=== PATIENT | male | born 2000 | race Caucasian/White ===

== ENCOUNTER 2024-10-31 03:33 | Emergency (ER) | payer BC, SELFPAY ==
[2024-10-31 03:38] VITALS: BP 144/74
[2024-10-31 05:18] LABS: Urine Albumin Negative (Neg - Trace); Urine Bilirubin Negative (Negative); Urine Character Clear (Clear); Urine Color Yellow; Urine Glucose Negative (Negative); Urine Ketone Negative (Negative); Urine Leukocyte Negative (Negative); Urine Nitrite Negative (Negative); Urine Occult Blood Negative (Negative); Urine Urobilinogen Negative (Neg - 1+)
[2024-10-31 06:49] VITALS: BP 143/60
[2024-10-31] MEDS: ROXICODONE 5 MG PO (07:33)
--- NOTE | 2024-10-31 07:33 | ED.GENMED ---
History of Present Illness
General
Chief Complaint: Back Pain
Source: patient and family
Time Seen by Provider: 10/31/24 07:06
History of Present Illness
History of Present Illness:
24-year-old male with past medical history of ADHD and depression, status post lumbar discectomy and laminectomy done 2 years ago presents to the emergency department for evaluation of worsening lower back pain over the last few weeks, acutely worse
over the last 24 hours not responding to Motrin, Tylenol and the initiation of a prednisone taper. Patient states that he cannot think of anything that exacerbated the back pain over the last few weeks as he denies any heavy lifting/bending or
twisting, traumatic injuries. In addition patient is also denying any fevers, bowel changes or urinary symptoms, saddle anesthesia, history of substance abuse. Patient previously had pain management with steroid injections a few years ago and then
ultimately the surgical procedure which she does report gave him relief for an extended period of time with only intermittent flares of pain. No other concerns presently.
Past History
Past History
ED Past Medical History: Psychiatric
ED Past Surgical History: Orthopedic
Social History
Tobacco: Non-smoker
Alcohol: None
Drug: None
Personal: Single
Living: with family
Review of Systems
Review of Systems
All Other Systems: ROS reviewed and negative except as documented in HPI and ROS
Phy Exam
Physical Exam
Physical Exam:
GENERAL: Alert , appears very uncomfortable, having a hard time moving around in bed
EYE: clear conjunctiva b/l
NECK: Supple
ENT: o/p clr, mmm.
BACK: vertically oriented scar over lumbar region without signs of infection. No focal ttp. Unable to assess ROM 2/2 patients pain
NEUROLOGICAL: Alert and oriented, no focal neuro deficits. Subjective diminished sensation over the lateral aspect of the mid tibia as well as along the medial foot going towards the great toe.
SKIN: Warm and dry, skin intact.
MUSCULOSKELETAL: No edema, well perfused. EHL intact bilaterally
PSYCH: Normal and appropriate interaction.
Scores
Heart Failure Risk
Heart Failure Risk Score: Not Applicable
Heart Score for Chest Pain Patients
STEMI patient?: Not applicable
Withdrawal Assessment of Alcohol
Withdrawal Assessment Completed?: Not applicable
Course
Orders/Labs/Results
Orders:
Orders
10/31/24 04:55
Urinalysis Reflex To Culture Urgent
Date Specimen was Collected: 10/31/24
Time Specimen was Collected: 04:51
10/31/24 07:21
Dexamethasone Sod Phosphate [Decadron] 10 mg IM NOW STA
Ketorolac [Toradol] 60 mg IM NOW STA
Lidocaine [Lidocaine 4% Patch] 1 patch TOPICAL NOW STA
Apply Lidocaine patch(s) to:: right lower back
Oxycodone [Roxicodone] 5 mg PO NOW STA
10/31/24 08:40
HYDROmorphone [Dilaudid] 0.5 mg IM NOW STA
Vital Signs
Initial and Last Documented VS:
Initial Vital Signs
Temp Pulse Resp BP Pulse Ox
98.0 F 81 16 144/74 98
10/31/24 03:38 10/31/24 03:38 10/31/24 03:38 10/31/24 03:38 10/31/24 03:38
Last Documented Vital Signs
Temp Pulse Resp BP Pulse Ox
98.0 F 75 18 146/74 95
10/31/24 03:38 10/31/24 08:49 10/31/24 08:49 10/31/24 08:49 10/31/24 08:49
MDM/Problems Addressed
Differential Diagnosis Includes:
lumbar radiculopathy, sciatica, spinal stenosis, no symptoms to suggest infectious etiology such as osteomyelitis/discitis/abscess. No neuro symptoms to suggest acute cauda equina
MDM/Problems Addressed:
24-year-old male presenting to the emergency department for evaluation of gradually worsening lower back pain over the last few weeks, acutely worse over the last 24 hours. Patient attempted Tylenol at 2 AM with no relief, Motrin yesterday and
initiated a short-term steroid taper a few days ago. I do feel that lumbar radiculopathy/disc herniation or nerve impingement are a likely diagnosis given patient's past medical history and paresthesia/numbness to the right foot/lateral lower leg.
We did discuss obtaining x-rays however patient declines. He did have a lumbar spine x-ray back in 2022 which did show some degenerative changes. Patient's mother accompanied him to the emergency department and is a PA at local primary care office
and states that they will be in contact with patient's surgeon office, Dr. Villatoro, for close follow-up. In the meantime we will treat symptoms with Toradol, Decadron, Lidoderm and oxycodone. Discussed muscle relaxant versus oxycodone and patient
ultimately opted for short term course of the oxycodone instead. Discussed side effects of medication. Anticipate discharge home with need for further outpatient workup.
Chronic conditions affecting care: Other (Previous lumbar discectomy/laminectomy)
*Pulse Oximetry
Patient hypoxic: no
*Critical Care Note
Total Time (30-74mins, 75-104mins- exclusive of procedures): Not Applicable
Data Reviewed
Review of Other/Old Records Reveals: Radiology Studies
Patient Management
Social determinants of health affecting care: Living situation and Strong social support
Escalation/DeEscalation of care consider admission/obs:
Patient with mild improvement following meds. Still with pain on movement. 0.5mg IM dose dilaudid ordered. Mother able to schedule appointment with [facility] and back specialist, patient has MRI scheduled for tomorrow. Stable for d/c home
and continued outpatient management. Aware of return precautions to the ER.
ED Attending Note
-
Portions of this chart may have been created with voice recognition software.� Occasional wrong word or��sound alike� substitutions may have occurred due to the inherent limitations of voice recognition software.
Discharge Plan
Departure
Patient Disposition: Home (Routine Discharge)
Date of Disposition: 10/31/24
Time of Disposition: 08:41
Patient with high blood pressure during this ER visit?: Yes
Discharge Problem:
Acute lumbar radiculopathy
Instructions: Radiculopathy (DC)
Prescriptions:
New
oxycodone-acetaminophen [Percocet] 5-325 mg tablet
1 tab PO Q6HPRN PRN (Reason: pain) Qty: 5 0RF
Referrals:
Franky Navarrete, DO [Family Provider] -
Interventions
Interventions:
*Risk Screen - Suicide Last Done: 10/31/24 06:49
*General Assessment Last Done: 10/31/24 03:38
*Neglect/Abuse Screening Last Done: 10/31/24 06:49
ED- Fall Risk Assessment Last Done: 10/31/24 06:49
*ED COVID-19 Vaccine History Last Done: 10/31/24 03:38
*Nursing Disposition Last Done: 10/31/24 08:54
ED-Musculoskeletal Assessment Last Done: 10/31/24 06:49
Discharge Date and Time
Discharge Date/Time: 10/31/24 08:54
Print Language: MOROCCAN
[2024-10-31] MEDS: TORADOL 60 MG IM (07:34)
[2024-10-31] MEDS: LIDOCAINE 4% PATCH 1 PATCH TOPICAL (07:34)
[2024-10-31] MEDS: DECADRON 10 MG IM (07:35)
[2024-10-31] MEDS: DILAUDID 0.5 MG IM (08:47)
[2024-10-31 08:49] VITALS: BP 146/74
== END 2024-10-31 08:54 | disposition home or self-care (01) ==
LOC: EMR 03:33
PROVIDERS: Emergency Medicine; EMERGENCY PHYSICIAN Emergency Medicine; FAMILY PHYSICIAN Family Medicine
DX: M54.16 Radiculopathy, lumbar region (principal); F90.9 Attention-deficit hyperactivity disorder, unspecified type; F32.A Depression, unspecified
CPT/HCPCS: 99282; 96372; 81003

== ENCOUNTER → 2024-11-07 15:22 | Outpatient (REF) | payer BC, SELFPAY | LOC: MRI 3T 15:22 | PROVIDERS: ATTENDING PHYSICIAN Physician Assistant Medical | DX: M54.16 Radiculopathy, lumbar region (principal) | CPT/HCPCS: 72148 ==